=== PATIENT | female | born 1985 | race Caucasian/White ===

== ENCOUNTER 2021-06-10 19:38 | Inpatient (IN) ==
[2021-06-10] MEDS ORDERED: OXYTOCIN 30 UNITS/500 ML BAG IV PRN (20:21)
[2021-06-10 20:48] LABS: Hematocrit (blood only) 35.2 % (37-47); Hemoglobin 11.3 g/dL (12.0-16.0); Mean Corpuscular Hemoglobin 28.8 pg (25-34); Mean Corpuscular Hgb Conc 32.1 g/dL (32-36); Mean Corpuscular Volume 89.6 fL (80-100); Mean Platelet Volume 10.4 fL (7.4-10.4); Platelet Count 297 K/uL (130-400); RDW Coefficient of Variation 15.7 % (11.5-14.5); RDW Standard Deviation 51.7 fL (36.4-46.3); Red Blood Count 3.93 M/uL (4.2-5.4); White Blood Count 11.92 K/uL (4.8-10.8)
[2021-06-10] MEDS ORDERED: miSOPROStoL 50 MCG TAB PO ONE (21:30)
[2021-06-11] MEDS ORDERED: miSOPROStoL 50 MCG TAB PO ONE (04:47)
[2021-06-11] MEDS ORDERED: OXYTOCIN 30 UNITS/500 ML BAG IV PRN ×2 (09:04→20:38)
[2021-06-11] MEDS: LABETALOL HCL 100 MG TAB PO SCH ×3 (09:06→23:04)
[2021-06-11] MEDS: LACTATED RINGER'S 1,000 ML IV PRN ×2 (09:14→16:44)
[2021-06-11] MEDS ORDERED: ACETAMINOPHEN 325 MG TAB PO PRN (20:38)
[2021-06-11] MEDS ORDERED: HYDROCORTISONE ACETATE 25 MG SUPP PR PRN (20:38)
[2021-06-11] MEDS ORDERED: oxyCODONE/ACETAMINOPHEN 5mg/325mg TAB PO PRN (20:38)
[2021-06-11] MEDS ORDERED: ACETAMINOPHEN W/CODEINE #3 1 TAB PO PRN (20:38)
[2021-06-11] MEDS ORDERED: bisacodyL 10 MG SUPP PR PRN (20:38)
[2021-06-11] MEDS ORDERED: SUPERCREAM 0.870% 15 GM JAR EXT PRN (20:38)
[2021-06-11] MEDS ORDERED: BENZOCAINE 20% AER SPR 82.5 GM CAN EXT PRN (20:38)
[2021-06-11] MEDS ORDERED: DIPHTHERIA/TETANUS/PERTUSSIS 0.5 ML SYR/VIAL IM ONE (20:38)
[2021-06-11] MEDS ORDERED: LABETALOL HCL 100 MG TAB PO SCH (21:00)
--- NOTE | 2021-06-11 21:10 | Delivery Summary ---
DATE OF SERVICE: 06/11/2021 DELIVERY NOTE: She is a 3, para 3, blood type is A positive, group B strep negative, followe d in our office for care and delivery. She has been on hypertensive meds for a good portion of the . I believe she was also on antihypertensive meds for the previous . She w as on labetalol 100 mg started at twice a day. By the time we were finished, it was 3 times a day an d her blood pressure when she came into the hospital was 169/90. She was brought in at 39+ weeks for induction. Given p.o. Cytotec 50 mcg and about 5-6 hours later, a second dose and then about 9:00 the following morning, she was started on IV Pitocin. She did well on IV Pitocin. She needed no pain m eds. She did not want to delay rupture of the membranes, so eventually we got her started and titrat ed her up to 30 units of Pitocin and then at that time, she was about 7 cm, membranes were ruptured s urgically. Fluid was clear and then under an hour, she basically cleared the head, came right down w ith about 3 pushes, pushed out a live infant via direct occiput anterior position. There was a tight nuchal cord, very tight, had to be clamped and cut prior to delivery of the infant. Once the infant was delivered, I stripped the remaining portion of the cord, re-clamped it, the father cut it. The n, I obtained cord blood. With IV Pitocin running, removed placenta intact. Inspected the perineum, which was intact. Hemostasis was good. Estimated blood loss was about 100 mL. Apgars were deferred to the nurses. The patient tolerated delivery well and left the delivery room in good condition. Job ID: [id number]
[2021-06-11] MEDS: IBUPROFEN 600 MG TAB PO PRN (23:45)
[2021-06-12] MEDS: DOCUSATE SODIUM 100 MG CAP PO SCH ×3 (00:28→19:57)
[2021-06-12] MEDS: IBUPROFEN 600 MG TAB PO PRN ×4 (05:10→19:57)
[2021-06-12 07:11] LABS: Hematocrit (blood only) 33.8 % (37-47); Hemoglobin 10.7 g/dL (12.0-16.0); Mean Corpuscular Hemoglobin 27.9 pg (25-34); Mean Corpuscular Hgb Conc 31.7 g/dL (32-36); Mean Corpuscular Volume 88.3 fL (80-100); Mean Platelet Volume 10.4 fL (7.4-10.4); Platelet Count 277 K/uL (130-400); RDW Standard Deviation 51.1 fL (36.4-46.3); Red Blood Count 3.83 M/uL (4.2-5.4); White Blood Count 12.21 K/uL (4.8-10.8)
[2021-06-12] MEDS: PRENATAL VITAMIN 1 TAB PO SCH (08:38)
--- NOTE | 2021-06-12 09:11 | Obstetrical Progress Note ---
Date of Service June 12, 2021 Assessment & Plan Admission and Anticipated Discharge Date Admission Date: June 10, 2021 Subjective abdomen soft and non tender no calf tenderness ambulating well vaginal bleeding scant hgb 10.7 Results & Data ([facility]) Vital Signs (Past 12 Hours) Vital Signs Temp Pulse Pulse Resp BP BP Pulse Ox 06/12/21 07:31 36.8 C 90 20 118/80 97 06/12/21 03:05 36.7 C 100 H 16 128/77 95 06/11/21 23:30 36.5 C 108 H 18 127/79 96 06/11/21 22:56 93 H 137/75 06/11/21 22:25 78 18 156/77 H 06/11/21 21:56 97 H 148/80 H 06/11/21 21:55 18 06/11/21 21:54 78 152/74 H 06/11/21 21:41 96 H 150/75 H 06/11/21 21:40 18 06/11/21 21:26 99 H 148/77 H 06/11/21 21:25 18 06/11/21 21:18 45 L 172/83 H 06/11/21 21:11 88 170/79 H
[2021-06-12] MEDS: LABETALOL HCL 100 MG TAB PO SCH ×3 (09:22→19:57)
[2021-06-12] MEDS ORDERED: bisacodyL 5 MG TABEC PO SCH (20:00)
[2021-06-13 07:10] LABS: Hematocrit (blood only) 35.3 % (37-47); Hemoglobin 11.1 g/dL (12.0-16.0)
[2021-06-13] MEDS: PRENATAL VITAMIN 1 TAB PO SCH (08:45)
[2021-06-13] MEDS: LABETALOL HCL 100 MG TAB PO SCH ×2 (08:45→13:15)
[2021-06-13] MEDS: DOCUSATE SODIUM 100 MG CAP PO SCH (08:45)
[2021-06-13] MEDS: IBUPROFEN 600 MG TAB PO PRN (08:45)
--- NOTE | 2021-06-13 09:56 | Obstetrical Progress Note ---
Date of Service June 13, 2021 Assessment & Plan Admission and Anticipated Discharge Date Admission Date: June 10, 2021 Subjective abdomen soft and non tender ambulating well no calf tenderness vaginal bleeding scant hgb 11.1 Results & Data ([facility]) Vital Signs (Past 12 Hours) Vital Signs Temp Pulse Resp BP Pulse Ox 06/13/21 00:00 36.6 C 80 16 138/78 98
== END 2021-06-13 13:30 | disposition home or self-care (01) | DRG 807 ==
LOC: 4S1 19:38 → 4S2 06-11 23:29